=== PATIENT | female | born 1980 | race Caucasian/White ===

== ENCOUNTER 2020-12-09 13:48 | Emergency (ER) | payer MEDICAID ==
[~2020-12-09] VITALS: Ht 160 cm; Wt 90.7 kg
--- NOTE | ~2020-12-09 | EMS ---
[address] [place] [address] EMS Patient Care Report Name: MAGDALENE LORENZO Room: [facility] TRAVIS Mccann#: [id number] Admission: 12/09/20 Attend Phys: Discharge: 12/09/20 Date of : 82 Report #: [id number] THIS REPORT FOR: //name// Report Transmitted: 12/09/2020 16:20 EMS Care Summary [facility] [id number] @ 12/09/2020 12:42 Incident Location [address] Patient MAGDALENE LORENZO Female, 40 Years 1980 Patient Address [address] [place] [address] Patient History Hypertension (HTN),Quadriplegia,Past Traumatic Brain Injury,G-Tube, Patient Allergies Adhesive Tape, Patient Medications Miralax, Nystatin, Metoclopramide, Tylenol, Mylanta, Zinc, Tagamet, Senna, Atrovent, Acetaminophen, Chief Complaint vomiting Disposition Transported No Lights/[place] Dispatch Reason Abdominal Pain/Problems Transported To [facility] Narrative Dispatched to [facility] for abdominal pain/ and vomiting. Upon arrival found 40 year old female lying in bed. Patient is alert to person. Staff relates that the patient had clear stools last night. Staff relates that over the last few hours patient has had vomiting and [place] [address] EMS Patient Care Report Name: MAGDALENE LORENZO Room[facility]#: [id number] Admission: 12/09/20 Attend Phys: Discharge: 12/09/20 Date of : 82 Report #: [id number] where here colostomy bag is. Staff relates that they did take the patient off her feeding machine. Staff relates that they did have an x-ray of the abdomen done showing impacted bowel. Staff request the patient to be transported to for further evaluation. Patient log rolled onto Robert lift pad. Robert lift used to lift patient to stretcher and secured using lap belts for safety. Patient loaded in ambulance and secured. Patient placed on potline monitor showing sinus tachycardia. Patient transported to . Patient rested comfortably during transport with no changes. Contacted [place] via radio no orders were requested or received. Arrived [place] patient to room 4 care and report to staff. Initial Vitals @13:06P: 180, @13:25P: 104,R: 18,BP: 185/110,GCS: 9,Revised Trauma: 11, @13:04P: 108,R: 16,BP: 177/128,GCS: 9,SpO2: 94,Revised Trauma: 11, @13:15P: 105,R: 16,BP: 197/116,GCS: 9,Revised Trauma: 11, @13:35P: 99,R: 18,BP: 165/107,GCS: 9,Revised Trauma: 11, @13:40P: 102,R: 18,BP: 167/109,GCS: 9,Revised Trauma: 11, Assessments @12:52MENTAL:Person Oriented,SKIN:HEENT:Head/Face: No Abnormalities,Neck/Airway: No Abnormalities,LUNG SOUNDS:General: Vomiting,General: Other,Right Upper: Other,ABDOMEN:General: Vomiting,General: Other,Right Upper: Other,PELVIS//GI:No Abnormalities,EXTREMITIES:Left Arm: Other,Left Leg: Other,Right Arm: Other,Right Leg: Other,PULSE:NEURO:No Abnormalities, Impression Abdominal Pain Procedures @13:043-Lead ECGResponse: UnchangedSucceeded@12:59StretcherResponse: Unchanged@12:51BLS AssessmentResponse: Unchanged Timeline 12:42,Call Received 12:42,Dispatched 12:42,Psap Call 12:44,En Route 12:46,On Scene 12:49,At Patient 12:51,BLS Assessment,Response: Unchanged 12:59,Stretcher,Response: Unchanged 13:04,3-Lead ECG,Response: UnchangedSucceeded, [place] [address] EMS Patient Care Report Name: MAGDALENE LORENZO Room: [facility] Mccann#: [id number] Admission: 12/09/20 Attend Phys: Discharge: 12/09/20 Date of : 82 Report #: [id number] 13:04,BP: 177/128 M,PULSE: 108,RR: 16 R,SPO2: 94 Ox,ETCO2: ,BG: ,PAIN: ,GCS: 9, 13:06,BP: / M,PULSE: 180,RR: R,SPO2: Ox,ETCO2: ,BG: ,PAIN: ,GCS: , 13:08,Depart Scene 13:15,BP: 197/116 M,PULSE: 105,RR: 16 R,SPO2: Ox,ETCO2: ,BG: ,PAIN: ,GCS: 9, 13:25,BP: 185/110 M,PULSE: 104,RR: 18 R,SPO2: Ox,ETCO2: ,BG: ,PAIN: ,GCS: 9, 13:35,BP: 165/107 M,PULSE: 99,RR: 18 R,SPO2: Ox,ETCO2: ,BG: ,PAIN: ,GCS: 9, 13:40,BP: 167/109 M,PULSE: 102,RR: 18 R,SPO2: Ox,ETCO2: ,BG: ,PAIN: ,GCS: 9, 13:44,At Destination 13:50,Transfer Patient 14:38,Call Closed 14:38,In District Disclaimer v1.1 Copyright 2020 [employer] This EMS Care Summary contains data elements from the applicable legal record (which may be displayed differently). It is designed to provide pertinent information for the following purposes: continuity of care, clinical quality, and state data reporting. The complete legal record is available to ED staff and administrators of the receiving hospital in [employer]'s Patient Tracker. All data is provided "as is."
[2020-12-09 14:18] LABS: ABSOLUTE EOSINOPHILS 0.1 thou/uL (0.0-0.7); ABSOLUTE LYMPHOCYTES 1.8 thou/uL (0.8-5.3); ABSOLUTE MONOCYTES 0.6 thou/uL (0.0-1.2); ABSOLUTE NEUTROPHILS 6.3 thou/uL (1.6-8.1); BASOPHILS 0.5 %; EOSINOPHILS 0.6 %; HEMATOCRIT 44.6 % (37.0-47.0); HEMOGLOBIN 14.7 gm/dL (12.0-15.0); LYMPHOCYTES 20.9 %; MCH 29.1 pg (26.0-34.0); MCV 88.1 fL (80.0-100.0); MONOCYTES 6.5 %; MPV 9.6 fl. (7.2-11.1); NUCLEATED RBCS 0 /100WBC; PLATELET COUNT* 222 thou/uL (150-400); POLYS 71.5 %; RBC 5.06 mil/uL (4.20-5.00); WBC 8.8 thou/uL (4.0-11.0)
[2020-12-09 14:28] LABS: CALCIUM 8.9 mg/dL (8.5-10.1); CREATININE 0.4 mg/dL (0.6-1.3); POTASSIUM 3.8 mmol/L (3.5-5.1)
[2020-12-09 14:32] LABS: ALBUMIN 3.7 g/dL (3.4-5.0); TOTAL BILIRUBIN 0.5 mg/dL (<0.1-1.0); TOTAL PROTEIN 7.6 g/dL (6.4-8.2)
[2020-12-09] MEDS ORDERED: DIOCTO50 MG/5 ML PO (14:42)
[2020-12-09] MEDS ORDERED: MEDROXYPROGESTERONE IM (14:43)
[2020-12-09] MEDS ORDERED: IPRAT-ALBUT 0.5-3 ML INH (14:43)
[2020-12-09] MEDS ORDERED: METOCLOPRAM5 MG/5 M2 PO (14:44)
[2020-12-09] MEDS ORDERED: MILK OF MA400 MG/5 M PO (14:44)
[2020-12-09] MEDS ORDERED: MIRALAX119 GM PO (14:45)
[2020-12-09] MEDS ORDERED: MYLANTA TONIGH355 ML PO (14:45)
[2020-12-09] MEDS ORDERED: NYSTATIN15 G1 TOP (14:46)
[2020-12-09] MEDS ORDERED: NYAMYC15 GM TOP (14:46)
[2020-12-09] MEDS ORDERED: SENNA8.8 MG/5 M PO (14:47)
[2020-12-09] MEDS ORDERED: SODIUM BICARBO454 GM PO (14:48)
[2020-12-09] MEDS ORDERED: CIMETIDINE300 MG/5 M PO (14:48)
[2020-12-09 17:00] VITALS: BP 132/87
--- NOTE | 2020-12-10 13:53 | EKG ---
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 12/10/20 1353 1431 1431 Clayton Marsh MD, FACC /EPI
== END 2020-12-09 17:00 | disposition home or self-care (01) ==
LOC: M.ERS 13:48
PROVIDERS: Family Medicine
DX: K46.9 Unspecified abdominal hernia without obstruction or gangrene (principal); Z79.899 Other long term (current) drug therapy; Z88.8 Allergy status to other drugs, medicaments and biological substances